=== PATIENT | female | born 1965 | race American Indian/Alaskan Native ===

== ENCOUNTER 2019-01-11 10:12 | Emergency (ER) | payer SELFPAY ==
[2019-01-11 10:28] VITALS: BP 136/85
[2019-01-11] MEDS ORDERED: HALDOL IM PRN (10:47)
[2019-01-11] MEDS ORDERED: ATIVAN IM PRN (10:47)
[2019-01-11] MEDS ORDERED: LIBRIUM PO PRN ×2 (10:48)
[2019-01-11] MEDS ORDERED: ATIVAN IV PRN (10:48)
[2019-01-11] MEDS ORDERED: ATIVAN PO PRN (10:48)
--- NOTE | 2019-01-11 10:50 | Emergency Department Report ---
ED General Adult HPI - General Chief complaint: Alcohol Stated complaint: psych Time Seen by Provider: 01/11/19 10:33 Source: patient, EMS (EMS documentation not available at the time of chart dictation), RN notes reviewed Mode of arrival: Stretcher Limitations: No Limitations - History of Present Illness Initial comments: This is a 53-year-old female. This patient is not known to this provider previously. The patient reports that she follows up with Dr. Winston in [place]. She has hypertension and number of psychiatric conditions. She does not recall all the medications that she takes. During the entirety of the history and physical, I am chaperoned by ELLEN RUTLEDGE The patient presents to the ER today with a complaint of request for detox. She consumes alcohol and recreational drugs. She was reportedly on the phone with the crisis Center, who reportedly contacted emergency medical services. The patient states that she is not homicidal or suicidal at the moment. She does not have access to guns or firearms. She does not have hallucinations. She has chronic lower back pain. She denies urinary symptoms. She denies other complaints. She reports that she is motivated to stop using recreational drugs. She denies other pain. Request for detox as constant, painless, does not radiate anywhere, and reportedly does not have exacerbating relieving factors. -: Gradual Location: back Radiation: non-radiation Severity scale (0 -10): 6 Quality: aching Consistency: other Improves with: other Worsens with: other - Related Data Previous Rx's Medication Instructions Recorded Last Taken Type Acetaminophen [Non-Aspirin Extra 500 mg PO Q6HR PRN #30 tablet 01/11/19 Unknown Rx Strength] Ibuprofen [Motrin] 600 mg PO Q8H PRN #30 tablet 01/11/19 Unknown Rx Multivitamin with Folic Acid [Cvs 400 mcg PO QDAY #30 tablet 01/11/19 Unknown Rx One Daily Essential Tablet] chlordiazePOXIDE [Librium] 25 mg PO Q6H PRN #25 capsule 01/11/19 Unknown Rx Allergies Allergy/AdvReac Type Severity Reaction Status Date / Time No Known Allergies Allergy Verified 01/11/19 12:12 ED Review of Systems ROS: Stated complaint: SI Other details as noted in HPI Constitutional: denies: fever Eyes: denies: eye discharge ENT: denies: epistaxis Respiratory: denies: cough Cardiovascular: denies: chest pain Gastrointestinal: denies: abdominal pain Genitourinary: denies: urgency Musculoskeletal: back pain Skin: denies: lesions Neurological: weakness Psychiatric: anxiety, depression. denies: auditory hallucinations, visual hallucinations, homicidal thoughts, suicidal thoughts ED Past Medical Hx - Past Medical History Previous Medical History?: Yes Hx Hypertension: Yes Additional medical history: bipolar, depression, anxiety - Surgical History Past Surgical History?: Yes Additional Surgical History: sections x2 - Social History Smoking Status: Never Smoker Substance Use Type: Alcohol, Cocaine - Medications Home Medications: Home Medications Medication Instructions Recorded Confirmed Last Taken Type Acetaminophen [Non-Aspirin Extra 500 mg PO Q6HR PRN #30 tablet 01/11/19 Unknown Rx Strength] Ibuprofen [Motrin] 600 mg PO Q8H PRN #30 tablet 01/11/19 Unknown Rx Multivitamin with Folic Acid [Cvs 400 mcg PO QDAY #30 tablet 01/11/19 Unknown Rx One Daily Essential Tablet] chlordiazePOXIDE [Librium] 25 mg PO Q6H PRN #25 capsule 01/11/19 Unknown Rx ED Physical Exam - General Limitations: No Limitations General appearance: alert, anxious - Head Head exam: Present: atraumatic, normocephalic - Eye Eye exam: Present: normal appearance, EOMI. Absent: nystagmus - ENT ENT exam: Present: normal exam, normal orophraynx, mucous membranes moist, normal external ear exam - Neck Neck exam: Present: normal inspection, full ROM. Absent: tenderness, meningismus - Respiratory Respiratory exam: Present: normal lung sounds bilaterally. Absent: respiratory distress - Cardiovascular Cardiovascular Exam: Present: regular rate, normal rhythm, normal heart sounds. Absent: bradycardia, tachycardia, irregular rhythm, systolic murmur, diastolic murmur, rubs, gallop - GI/Abdominal GI/Abdominal exam: Present: soft. Absent: distended, tenderness, guarding, rebound, rigid, pulsatile mass - Extremities Exam Extremities exam: Present: normal inspection, full ROM, other (2+ pulses noted in the bilateral upper, lower extremities. There is no long bony tenderness. The pelvis is stable. Muscular compartments are soft.). Absent: pedal edema, joint swelling, calf tenderness - Back Exam Back exam: Present: normal inspection, full ROM. Absent: tenderness, CVA tenderness (R), CVA tenderness (L), paraspinal tenderness, vertebral tenderness - Neurological Exam Neurological exam: Present: alert, oriented X3, normal gait, other (there is no facial droop. The tongue is midline. The extraocular movements are intact bilaterally. 5/ 5 strength bilateral upper, lower extremities. Sensation intact to light touch bilateral upper, lower extremities bilaterally. Sensation is intact to light touch in the bilateral V1, V2, V3 distribution.). Absent: motor sensory deficit - Psychiatric Psychiatric exam: Present: anxious. Absent: homicidal ideation, suicidal ideat ion - Skin Skin exam: Present: warm, dry, intact, normal color. Absent: rash ED Course Vital Signs 01/11/19 10:23 Temperature 97.8 F Pulse Rate 80 Respiratory 16 Rate Blood Pressure 136/85 O2 Sat by Pulse 100 Oximetry - Reevaluation(s) Reevaluation #1: 01/11/19 11:54 Differential diagnosis, including but not limited to: Detox, polysubstance abuse, medical clearance, dysthymia Assessment and plan: 53-year-old female with a request for detox. The patient is not homicidal or suicidal at this time. The patient is calm and cooperative. The patient is not psychotic. The patient does not meet 1013 criteria at this time. Urinalysis reviewed and appreciated, the patient has not endorsed any urinary symptoms at this time. 01/11/19 12:33 Reevaluation #2: 01/11/19 12:38 Patient walking around with a steady gait. Laboratory studies reviewed and appreciated. Patient is seen by psychiatry, she will be given outpatient resources for follow-up. Patient alert and oriented 3, exhibits decision- making capacity, and appears to be clinically sober at this time. ED Medical Decision Making - Lab Data Result diagrams: 01/11/19 11:01 01/11/19 11:01 Vital Signs 01/11/19 10:23 Temperature 97.8 F Pulse Rate 80 Respiratory 16 Rate Blood Pressure 136/85 O2 Sat by Pulse 100 Oximetry Lab Results 01/11/19 01/11/19 01/11/19 Range/Units 11: 11:01 11:01 Sodium 142 (137-145) mmol/L Potassium 3.7 (3.6-5.0) mmol/L Chloride 105.1 (98-107) mmol/L Carbon Dioxide 28 (22-30) mmol/L Anion Gap 13 mmol/L BUN 12 (7-17) mg/dL Creatinine 0.9 (0.7-1.2) mg/dL Estimated GFR > 60 ml/min BUN/Creatinine Ratio 13 % Glucose 108 H (65-100) mg/dL Calcium 8.9 (8.4-10.2) mg/dL Magnesium 2.10 (1.7-2.3) mg/dL Total Bilirubin 0.30 (0.1-1.2) mg/dL AST 18 (5-40) units/L ALT 19 (7-56) units/L Alkaline Phosphatase 55 (35-129) units/L Total Creatine Kinase 162 H (30-135) units/L Total Protein 6.2 L (6.3-8.2) g/dL Albumin 3.5 L (3.9-5) g/dL Albumin/Globulin Ratio 1.3 % Urine Color (Yellow) Urine Turbidity (Clear) Urine pH (5.0-7.0) Ur Specific Reva (1.003-1.030) Urine Protein (Negative) mg/dL Urine Glucose (UA) (Negative) mg/dL Urine Ketones (Negative) mg/dL Urine Blood (Negative) Urine Nitrite (Negative) Urine Bilirubin (Negative) Urine Urobilinogen (<2.0) mg/dL Ur Leukocyte Esterase (Negative) Urine WBC (Auto) (0.0-6.0) /HPF Urine RBC (Auto) (0.0-6.0) /HPF U Epithel Cells (Auto) (0-13.0) /HPF Urine Bacteria (Auto) (Negative) /HPF Urine Mucus /HPF Salicylates (2.8-20.0) mg/dL Urine Opiates Screen Urine Methadone Screen Ur Barbiturates Screen Valproic Acid (50-100) ug/mL Ur Phencyclidine Scrn Ur Amphetamines Screen U Benzodiazepines Scrn Chilili (0.0-1.2) mmol/L Urine Cocaine Screen U Marijuana (THC) Screen Drugs of Abuse Note Plasma/Serum Alcohol < 0.01 (0-0.07) % 01/11/19 01/11/19 01/11/19 Range/Units 11:01 Unknown Unknown Sodium (137-145) mmol/L Potassium (3.6-5.0) mmol/L Chloride (98-107) mmol/L Carbon Dioxide (22-30) mmol/L Anion Gap mmol/L BUN (7-17) mg/dL Creatinine (0.7-1.2) mg/dL Estimated GFR ml/min BUN/Creatinine Ratio % Glucose (65-100) mg/dL Calcium (8.4-10.2) mg/dL Magnesium (1.7-2.3) mg/dL Total Bilirubin (0.1-1.2) mg/dL AST (5-40) units/L ALT (7-56) units/L Alkaline Phosphatase (35-129) units/L Total Creatine Kinase (30-135) units/L Total Protein (6.3-8.2) g/dL Albumin (3.9-5) g/dL Albumin/Globulin Ratio % Urine Color Yellow (Yellow) Urine Turbidity Slightly-cloudy (Clear) Urine pH 6.0 (5.0-7.0) Ur Specific Reva 1.020 (1.003-1.030) Urine Protein <15 mg/dl (Negative) mg/dL Urine Glucose (UA) Neg (Negative) mg/dL Urine Ketones Neg (Negative) mg/dL Urine Blood Lg (Negative) Urine Nitrite Neg (Negative) Urine Bilirubin Neg (Negative) Urine Urobilinogen 2.0 (<2.0) mg/dL Ur Leukocyte Esterase Mod (Negative) Urine WBC (Auto) 14.0 H (0.0-6.0) /HPF Urine RBC (Auto) 46.0 (0.0-6.0) /HPF U Epithel Cells (Auto) 8.0 (0-13.0) /HPF Urine Bacteria (Auto) 1+ (Negative) /HPF Urine Mucus Few /HPF Salicylates < 0.3 L (2.8-20.0) mg/dL Urine Opiates Screen Presumptive negative Urine Methadone Screen Presumptive negative Ur Barbiturates Screen Presumptive negative Valproic Acid < 2.8 L (50-100) ug/mL Ur Phencyclidine Scrn Presumptive negative Ur Amphetamines Screen Presumptive negative U Benzodiazepines Scrn Presumptive negative Chilili 0.1 (0.0-1.2) mmol/L Urine Cocaine Screen Presumptive positive U Marijuana (THC) Screen Presumptive positive Drugs of Abuse Note Disclamer Plasma/Serum Alcohol (0-0.07) % - EKG Data -: EKG Interpreted by Ar EKG shows normal: sinus rhythm Rate: normal - EKG Data When compared to previous EKG there are: previous EKG unavailable 01/11/19 12:10 This is a normal sinus rhythm, 66 bpm, normal axis, QTC 443 ms, poor R progression, T-wave inversion, no endorsement of chest pain, EKG is abnormal, the EKG is not consistent with ST elevation myocardial infarction. Critical care attestation.: If time is entered above; I have spent that time in minutes in the direct care of this critically ill patient, excluding procedure time. ED Disposition Clinical Impression: Polysubstance (including opioids) dependence w/o physiol dependence Disposition: DC-01 TO HOME OR SELFCARE Is pt being admited?: No Does the pt Need Aspirin: No Condition: Stable Instructions: Polysubstance Abuse (ED) Additional Instructions: Rest, avoid heavy lifting, and avoid strenuous physical activities. Patient may alternate heat packs and ice packs as needed, and take the prescribed medications as needed/directed for presumed chronic back pain. Use Librium as needed for symptoms of alcohol withdrawal, including shaking and tremors, and take the multivitamin supplementations as directed. Recommend abstinence from alcohol, crack, cocaine and recreational substances, as long-term consumption of these substances may cause addiction, , disability, paralysis, loss of quality of life. Recommend follow-up with an outpatient primary care doctor or addiction spec ialist or mental health specialist within the next month. Return to the emergency room right away with new, worsening or different symptoms, or symptoms not present on the initial emergency room evaluation. Prescriptions: Multivitamin with Folic Acid [Cvs One Daily Essential Tablet] 400 mcg PO QDAY #30 tablet chlordiazePOXIDE [Librium] 25 mg PO Q6H PRN #25 capsule PRN Reason: Alcohol Withdrawal Ibuprofen [Motrin] 600 mg PO Q8H PRN #30 tablet PRN Reason: Pain Acetaminophen [Non-Aspirin Extra Strength] 500 mg PO Q6HR PRN #30 tablet PRN Reason: Pain , Severe (7-10) Referrals: MARIPOSA OROZCO MD [[facility] Care Provider[facility]
[2019-01-11 11:16] LABS: Bacteria,Urine 1+ /HPF (Negative); Bilirubin,Urine NEG (Negative); Blood,Urine LG (Negative); Color,Urine Yellow (Yellow); Mucus,Urine FEW /HPF; Protein,Urine <15 mg/dL mg/dL (Negative)
[2019-01-11 11:19] LABS: Amphetamine Screen,Urine PRESUMPTIVE NEGATIVE; Benzodiazepines Screen,Urine PRESUMPTIVE NEGATIVE; Methadone Screen,Urine PRESUMPTIVE NEGATIVE; Opiate Screen,Urine PRESUMPTIVE NEGATIVE
[2019-01-11 11:30] LABS: Cannabinoid Screen,Urine PRESUMPTIVE POSITIVE; Cocaine Screen,Urine PRESUMPTIVE POSITIVE
[2019-01-11 11:49] LABS: Alanine Aminotransferase 19 units/L (7-56); Albumin 3.5 g/dL (3.9-5); BUN/Creatinine Ratio 13; Blood Urea Nitrogen 12 mg/dL (7-17); Calcium 8.9 mg/dL (8.4-10.2); Hemolysis Index 2
[2019-01-11 12:11] LABS: Hematocrit 37.4 % (30.3-42.9); Hemoglobin 12.8 gm/dl (10.1-14.3); Mean Corpuscular HGB Conc 34 % (30-34); Mean Corpuscular Volume 86 fl (79-97); Platelet Count 264 K/mm3 (140-440); Red Blood Count 4.37 M/mm3 (3.65-5.03); Red Cell Distribution Width 15.9 % (13.2-15.2)
--- NOTE | 2019-01-11 14:14 | Consultation ---
History of Present Illness - Reason for Consult Consult date: 01/11/19 Reason for consult: Mental Health Evaluation Requesting physician: ROGER UMAÑA - Chief Complaint Chief complaint: "I need help for my drug use" - History of Present Psychiatric Illness 53 y.o. AA female who presented to the ER for detox. Today the patient was calm and cooperative during the assessment. She stated that she need help for her drug use. She stated that "drugs" have been part of her life for several years. She stated that she have been to rehab services, but relapsed. She stated that she use "drugs" because she enjoy the "high." She is aware that her drug use isn't a safe thing to do. She stated that she is willing to attend rehab services again, but will do a better job at staying "clean" after treatment. She denies being depressed. She denies SI/HI's and AVH's. She denies erratic sleep and a poor appetite. She denies alcohol consumption (etoh). Medications and Allergies Allergies Allergy/AdvReac Type Severity Reaction Status Date / Time No Known Allergies Allergy Verified 01/11/19 12:12 Home Medications Medication Instructions Recorded Confirmed Last Taken Type Acetaminophen [Non-Aspirin Extra 500 mg PO Q6HR PRN #30 tablet 01/11/19 Unknown Rx Strength] Ibuprofen [Motrin] 600 mg PO Q8H PRN #30 tablet 01/11/19 Unknown Rx Multivitamin with Folic Acid [Cvs 400 mcg PO QDAY #30 tablet 01/11/19 Unknown Rx One Daily Essential Tablet] chlordiazePOXIDE [Librium] 25 mg PO Q6H PRN #25 capsule 01/11/19 Unknown Rx Past psychiatric history - Past Medical History Past Medical History: No medical history Past Surgical History: No surgical history - past Psychiatric treatment and history psychiatric treatment history: Hx of Substance abuse. Denies a fam psy hx. - Social History Social history: other (Homeless) Mental Status Exam - Vital signs Last Vital Signs Temp 97.8 F 01/11/19 10:23 Pulse 80 01/11/19 10:23 Resp 16 01/11/19 10:23 BP 136/85 01/11/19 10:23 Pulse Ox 100 01/11/19 10:23 - Exam Narrative exam: MSE: Appearance: calm, cooperative Behavior: regular eye contact Speech: regular rate and tone Mood: "okay" Affect: congruent to mood Thought Process: linear Thought Content: denies SI/HI's and VH's Motor Activity: ambulatory Cognition: A/O x3 Insight: fair Judgment: appropriate Results Result Diagrams: 01/11/19 11:01/11/19 11:01 Abnormal lab results 01/11/19 01/11/19 01/11/19 Range/Units 11: 11: 11:01 WBC 11.5 H (4.5-11.0) K/mm3 RDW 15.9 H (13.2-15.2) % Glucose 108 H (65-100) mg/dL Total Creatine Kinase 162 H (30-135) units/L Total Protein 6.2 L (6.3-8.2) g/dL Albumin 3.5 L (3.9-5) g/dL Urine WBC (Auto) (0.0-6.0) /HPF Salicylates (2.8-20.0) mg/dL Acetaminophen (10.0-30.0) ug/mL Valproic Acid (50-100) ug/mL 01/11/19 01/11/19 01/11/19 Range/Units 11: 11:01 Unknown WBC (4.5-11.0) K/mm3 RDW (13.2-15.2) % Glucose (65-100) mg/dL Total Creatine Kinase (30-135) units/L Total Protein (6.3-8.2) g/dL Albumin (3.9-5) g/dL Urine WBC (Auto) 14.0 H (0.0-6.0) /HPF Salicylates < 0.3 L (2.8-20.0) mg/dL Acetaminophen < 5.0 L (10.0-30.0) ug/mL Valproic Acid < 2.8 L (50-100) ug/mL All other labs normal. Assessment and Plan Assessment and plan: Impression; Substance Use DO (cocaine). Cannabis Use DO. Today the patient was calm and cooperative during the assessment. Recommendation/Plan: Discussed the importance to abstain from recreational drug use with the patient, she verbalized understanding. Dispo: The patient can follow -up with [facility] for outpatient rehab services. Staffed with Dr Skye Alcantar.
== END 2019-01-11 13:32 | disposition home or self-care (01) ==
LOC: EEVIPCON 10:12 → ED 10:12
DX: F10.239 Alcohol dependence with withdrawal, unspecified (principal); F19.20 Other psychoactive substance dependence, uncomplicated; G89.29 Other chronic pain; M54.5 Low back pain; F31.9 Bipolar disorder, unspecified; F41.9 Anxiety disorder, unspecified
CPT/HCPCS: 36415; 80053; 80164; 80178; 80307; 80320; 81001; 82550; 83735; 85027; 87086; 93005; 93010; G0480